=== PATIENT | female | born 1990 | race Asian ===

== ENCOUNTER 2017-04-04 13:44 | Emergency (ER) | payer OTHER ==
[~2017-04-04] VITALS: Ht 167.6 cm; Wt 54.7 kg
[2017-04-04 13:47] VITALS: BP 114/77; PULSE 82; TEMP 36.5; O2SAT 98; Ht 167.6 cm; Wt 54.7 kg
--- NOTE | 2017-04-04 14:11 | EMERGENCY ROOM VISIT NOTE ---
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 The patient states that it started on Monday and she felt better Monday and Monday and then she started with the same symptoms yesterday and hasn't today. The patient denies any visual changes, foreign body in her eye or any recent contact to use. The patient denies any drainage from the eyes or her eyes being matted shut in the morning. REVIEW OF SYSTEMS: 6 system review was performed and was negative unless stated otherwise in history of present illness. PMH: The patient is healthy; there is no significant medical or surgical history. SOCIAL HISTORY: Patient is a [employer] student. The patient denies any tobacco or alcohol use PHYSICAL EXAM: Vital Signs: Were reviewed Reviewed Nurse's notes. GEN.: 26-year -old female appears in no acute distress. MENTAL STATUS: Alert and oriented 3. SKIN: Warm, dry. No cyanosis. No petechia. EYE(S): Both pupils equal and reactive, EOMs full. Conjunctiva without any erythema, cobblestoning or drainage. EMERGENCY DEPARTMENT COURSE: The patient was evaluated. I discussed with the patient that this most likely is due to dry heat. It seemed to be better over the weekend and now that she is back at the [employer] studying her symptoms are worsening again. Recommend [id number] artificial tears frequently as needed for dry eyes. I also discussed with the patient about worsening of symptoms. Patient was discharged home in stable condition. DIAGNOSIS: Dry eyes DISCHARGE INSTRUCTIONS: Recommend [id number] artificial tears as needed for dry eyes. Try not to sit near any heating ducts or events. If you experience any severe redness, drainage from the eyes, seek further medical attention for antibiotic drops. Current/Historical Medications No Active Prescriptions or Reported Meds Allergies Coded Allergies: No Known Allergies (Unverified , 04/04/17) Vital Signs Date Time Temp Pulse Resp B/P (MAP) Pulse Ox O2 Delivery O2 Flow Rate FiO2 04/04/17 13:47 36.5 82 20 114/77 98 Room Air Departure Information Prescriptions No Active Prescriptions or Reported Meds Referrals No Doctor, Assigned (PCP) Patient Instructions [facility] [place]
== END 2017-04-04 14:15 | disposition home or self-care (01) ==
LOC: C.EDB 13:45 → C.EDD 14:15
DX: H04.123 Dry eye syndrome of bilateral lacrimal glands (principal)